=== PATIENT | male | born 1945 | race American Indian/Alaskan Native ===

== ENCOUNTER 2023-11-25 11:11 | Emergency (ER) | payer MEDICARE, OTHER, SELFPAY ==
--- NOTE | ~2023-11-25 | XR_ITS ---
EXAMINATION: XR CHEST CLINICAL INFORMATION: Shortness of breath. COMPARISON: None available. TECHNIQUE: 2 views of the chest were obtained. FINDINGS: The lungs are clear. The cardiomediastinal silhouette is normal in size. There is no pleural effusion or pneumothorax. No acute osseous abnormality. XR/XR chest 2V IMPRESSION: No acute cardiopulmonary findings.
[2023-11-25 11:16] VITALS: BP 106/88; PULSE 79; RESP 20; TEMP 35.8; O2SAT 99; BMI 27.3
--- NOTE | 2023-11-25 11:16 | ED.ASTHMA ---
HPI - Asthma General Chief Complaint: Upper Respiratory Symptoms Stated Complaint: Asthma Related Data Allergies Allergy/AdvReac Type Severity Reaction Status Date / Time Penicillins Allergy Hives Verified 11/25/23 11:20 Sulfa (Sulfonamide Allergy Itching Verified 11/25/23 11:20 Antibiotics) PMFSH Social History Social History Advance Directives: No Advance Directives Information Provided: No Physical Exam Vital Signs: Vital Signs: Last Vital Signs Temp 98.4 F 11/25/23 13:16 Pulse 68 11/25/23 13:16 Resp 18 11/25/23 13:16 BP 134/75 11/25/23 13:16 Pulse Ox 95 11/25/23 13:16 O2 Del Method Room Air 11/25/23 13:16 BMI result Body Mass Index 27.3 Course Course Course Narrative: RME: 78 year-old M w/ PMHx asthma presenting to the ED c/o asthma attack x this morning w/cough and SOB. Used inhaler w/o relief Lungs CTA, No pedal edema CXR, viral studies ordered Full HPI, ROS and PE to be performed by primary ED provider. Medications Administered Discontinued Medications Generic Name Dose Route Start Last Admin Trade Name Freq PRN Reason Stop Dose Admin Albuterol Sulfate 4 puff 11/25/23 11:18 11/25/23 11:27 Albuterol Sulfate 90 Mcg 8 Gm Inhaler INHALE 11/25/23 11:19 4 puff ONCE ONE Administration Medical Decision Making Lab Data Labs: Lab Results 11/25/23 Range/Units 11:45 COVID-19 ([facility]OAN) Negative (Negative) COVID-19 Clin Com See Note Influenza Type A (VERO) Negative (Negative) Influenza Type B (VERO) Negative (Negative) Influenza A & B Note See Note Discharge Plan Discharge Clinical Impression: Asthma Patient Disposition: Left W/O Completing Treatment Discharge Date/Time: 11/25/23 14:48
[2023-11-25] MEDS: Albuterol Sulfate 90 MCG 8 GM INHALER 4 PUFF INHALE (11:27)
[2023-11-25 11:28] VITALS: PULSE 80; RESP 16; O2SAT 94
[2023-11-25 12:22] LABS: COVID-19 Test Negative (Negative); IDNOW Serial# 08D9AD1C
[2023-11-25 12:32] LABS: IDNOW Serial# 152EDE1D; Influenza A Negative (Negative); Influenza B2 Negative (Negative)
[2023-11-25 13:16] VITALS: BP 134/75; PULSE 68; RESP 18; TEMP 36.9; O2SAT 95
== END 2023-11-25 14:48 | disposition left against medical advice (07) ==
PROVIDERS: Physician Assistant; Emergency Provider Emergency Medicine
DX: J45.909 Unspecified asthma, uncomplicated (principal); R06.02 Shortness of breath; Z11.52 Encounter for screening for COVID-19; Z79.899 Other long term (current) drug therapy
CPT/HCPCS: 71046; 87502; 87635; 94640; 99283; 99284